=== PATIENT | female | born 1995 | race Caucasian/White ===

== ENCOUNTER 2016-10-05 16:51 | Emergency (ER) | payer SELFPAY ==
[~2016-10-05] VITALS: Ht 149.9 cm; Wt 66.2 kg
[2016-10-05 16:51] VITALS: BP_SYST 113
[2016-10-05] MEDS ORDERED: IBUPROFEN 800 MG TABLET PO ONE (18:15)
[2016-10-05 18:38] VITALS: BP_SYST 127
== END 2016-10-05 18:38 | disposition home or self-care (01) ==
LOC: SED 16:51
DX: R51 Headache (principal); V49.9XXA Car occupant (driver) (passenger) injured in unspecified traffic accident, initial encounter; Y93.89 Activity, other specified; Y92.488 Other paved roadways as the place of occurrence of the external cause; Y99.9 Unspecified external cause status
CPT/HCPCS: 81025; 99282